=== PATIENT | male | born 1980 | race Caucasian/White ===

== ENCOUNTER 2017-10-14 06:01 | Emergency (ER) | payer SELFPAY ==
[2017-10-14] MEDS ORDERED: DIPH/PERTUSS(ACELL)/TETANUS VAC/PF 0.5 ML SYR (>=10YO) IM ONE (06:49)
--- NOTE | 2017-10-14 07:14 | RADIOLOGY REPORT (SQ) ---
EXAM DESCRIPTION: CT FACIAL AREA WITHOUT CLINICAL HISTORY: 37 years Male, orbital nasal trauma left COMPARISON: None. TECHNIQUE: No contrast. Coronal and sagittal reformat. This exam was performed according to our departmental dose-optimization program, which includes automated exposure control, adjustment of the mA and/or kV according to patient size and/or use of iterative reconstruction technique. FINDINGS: Small fracture/deformity of the lateral right nasal bone involves a 1.4 cm segment with a 0.2 cm medial displacement of indeterminate age. Mild levo convexity of the nasal septum. Minimal right inferior maxillary mucosal thickening. Minimal protrusion of bilateral maxillary molars at the maxillary floor. Moderately narrowed right ostiomeatal unit due to a small mucosal thickening and inferiorly displaced ethmoid air cell. Else, orbits, paranasal sinuses, and pterygoid plates appear otherwise intact. Unremarkable partially visualized inferior cranium, temporal bone, and upper neck. IMPRESSION: Fracture/deformity of the nasal bone.
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
[2017-10-14 08:11] VITALS: BP 149/98
== END 2017-10-14 08:11 | disposition home or self-care (01) ==
LOC: ER 06:01
DX: H66.90 Otitis media, unspecified, unspecified ear (principal); R50.9 Fever, unspecified
CPT/HCPCS: 70486; 90471; 90715; 99283

== ENCOUNTER 2018-11-29 16:49 | Emergency (ER) | payer SELFPAY ==
[2018-11-29 16:54] VITALS: BP 134/83
--- NOTE | 2018-11-29 17:13 | ER Document Report ---
HPI - HPI Time Seen by Provider: 11/29/18 17:04 Pain Level: 2 Notes: Patient is a 38-year-old male with no significant past medical history presents emergency department complaining of intermittent abdominal cramping and watery diarrhea that is been ongoing for 2 days. Patient states that he is primarily here because he needs a work note. He does not currently have any pain. Patient states that he has had multiple episodes of watery diarrhea every day. He denies any travel, recent antibiotics, new foods, or drinking from any streams. Denies drug allergies. He is otherwise able to eat and drink without difficulty. He is urinating normally. No surgical history to his abdomen. Denies any headache, fever, URI, sore throat, chest pain, palpitations, syncope, cough, shortness of breath, wheeze, dyspnea, nausea/vomiting, urinary retention, dysuria, hematuria, back pain, or rash. - ROS Systems Reviewed and Negative: Yes All other systems reviewed and negative - DERM Skin Color: Normal Past Medical History - Social History Smoking Status: Current Every Day Smoker Frequency of alcohol use: Occasional Drug Abuse: None Family History: Malignancy Patient has suicidal ideation: No Patient has homicidal ideation: No Renal/ Medical History: Denies: Hx Peritoneal Dialysis Vertical Provider Document - CONSTITUTIONAL Agree With Documented VS: Yes Notes: PHYSICAL EXAMINATION: GENERAL: Well-appearing, well-nourished and in no acute distress. HEAD: Atraumatic, normocephalic. EYES: Pupils equal round and reactive to light, extraocular movements intact, sclera anicteric, conjunctiva are normal. ENT: Nares patent and without discharge. oropharynx clear without exudates. No tonsilar hypertrophy or erythema. Moist mucous membranes. NECK: Normal range of motion, supple without lymphadenopathy LUNGS: Breath sounds clear to auscultation bilaterally and equal. No wheezes rales or rhonchi. HEART: Regular rate and rhythm without murmurs, rubs, gallops. ABDOMEN: Soft, nontender, nondistended abdomen. No guarding, no rebound. Normal bowel sounds present. No CVA tenderness bilaterally. No tenderness at McBurney. Maria negative. Musculoskeletal: FROM to passive/active. Strength 5+/5. Extremities: No cyanosis, clubbing, or edema b/l. Peripheral pulses 2+. Capillary refill less than 3 seconds. NEUROLOGICAL: Normal speech, normal gait. PSYCH: Normal mood, normal affect. SKIN: Warm, Dry, normal turgor, no rashes or lesions noted. - INFECTION CONTROL TRAVEL OUTSIDE OF THE [place] IN LAST 30 DAYS: No Course - Re-evaluation Re-evalutation: 11/29/18 17:11 Patient is an afebrile, well-hydrated, 38-year-old male who presents to the emergency department with intermittent abdominal cramping and watery diarrhea which I suspect to be viral. Vitals are acceptable without significant tachycardia, tachypnea, or hypoxia. PE is otherwise unremarkable. Patient's abdomen is soft and nontender. He is nontoxic-appearing and is able to tolerate p.o. without difficulty. No labs or imaging warranted. Work note will be provided. Low suspicion/risk for acute appendicitis, bowel obstruction, acute cholecystitis, perforated diverticulitis, incarcerated hernia, pancreatitis, perforated ulcer, peritonitis, sepsis, testicular torsion, or other systemic emergent condition at this time. Patient is aware that his condition can change from initial presentation and he needs to monitor symptoms closely and seek medical attention if any acute changes. Conservative measures otherwise for symptoms. Recheck with PCM in 2-3 days. Consider consult with a director of home health services. Return to the ED with any worsening/concerning symptoms otherwise as reviewed in discharge. Patient is in agreement. - Vital Signs Vital signs: Temp Pulse Resp BP Pulse Ox 98.6 F 87 16 134/83 H 97 11/29/18 16:53 11/29/18 16:53 11/29/18 16:53 11/29/18 16:53 11/29/18 16:53 Discharge - Discharge Clinical Impression: Abdominal cramping, Watery diarrhea Condition: Stable Disposition: HOME, SELF-CARE Instructions: Diarrhea, Nonspecific ([facility]) Additional Instructions: Maintain adequate fluid and food intake High fiber/water intake tylenol if needed Monitor for any worsening symptoms Make sure you are staying hydrated enough to urinate and have normal BM's Recheck with your PCM in 2-3 days Consider consult with Gastroenterology for ongoing/worsening symptoms Return to the ED with any worsening symptoms and/or development of fever, headache, chest pain, palpitations, syncope, shortness of breath, trouble breathing, abdominal pain, n/v/d, blood in stool/urine, weakness, or other worsening symptoms that are concerning to you. Forms: Elevated Blood Pressure, Smoking Cessation Education, Special Work Note Referrals: ZENOBAI MILLS MD [ACTIVE STAFF] - Follow up as needed
== END 2018-11-29 17:24 | disposition home or self-care (01) ==
LOC: ER 16:49
DX: R19.7 Diarrhea, unspecified (principal); R10.9 Unspecified abdominal pain; F17.200 Nicotine dependence, unspecified, uncomplicated
CPT/HCPCS: 99283